=== PATIENT | female | born 1970 | race Caucasian/White ===

== ENCOUNTER → 2016-04-26 | Outpatient (CLI) | payer OTHER | LOC: FIMAGING 09:12 | PROVIDERS: ATTEND Physician Assistant | DX: Z12.39 Encounter for other screening for malignant neoplasm of breast (principal); R92.2 Inconclusive mammogram ==

== ENCOUNTER 2018-06-26 10:37 | Day surgery (SDC) | payer OTHER ==
[2018-06-26] MEDS ORDERED: LIDOCAINE 1% 300 MG/30 ML SDV ONE (10:44)
[2018-06-26] MEDS ORDERED: ROPIVACAINE HCL 150 MG/30 ML INJ ONE (10:44)
[2018-06-26] MEDS ORDERED: BUPIVACAINE 0.5% 30 ML SDV ONE (10:44)
[2018-06-26] MEDS ORDERED: BACITRACIN 50,000 UNITS/10 ML SYR IRR ONE (10:45)
[2018-06-26] MEDS ORDERED: LIDOCAINE 1% 2 ML INJ ID PRN (10:57)
[2018-06-26] MEDS ORDERED: LR 1,000 ML IV ONE (10:57)
[2018-06-26] MEDS ORDERED: ceFAZolin 2 GM/DEXTROSE 100 ML IV ONE (11:20)
[2018-06-26] MEDS ORDERED: MIDAZOLAM 2 MG/2 ML VIAL IVP ONE (12:02)
[2018-06-26] MEDS ORDERED: PROPOFOL/EMULSION 500 MG/50 ML BOTTLE IV ONE (12:04)
[2018-06-26] MEDS ORDERED: MIDAZOLAM 2 MG/2 ML VIAL ONE (12:06)
[2018-06-26] MEDS ORDERED: ACETAMINOPHEN 500 MG TAB PO PRN ×2 (13:14→14:42)
[2018-06-26] MEDS ORDERED: oxyCODONE IR 5 MG TAB PO PRN ×2 (13:14→14:42)
[2018-06-26] MEDS ORDERED: fentaNYL 100 MCG/2 ML INJ IVP PRN ×2 (13:14→14:42)
[2018-06-26] MEDS ORDERED: PROMETHAZINE HCL 25 MG/ML INJ IVP PRN (13:14)
[2018-06-26] MEDS ORDERED: ONDANSETRON 4 MG/2 ML VIAL IVP PRN ×2 (13:14→14:42)
[2018-06-26] MEDS ORDERED: METOCLOPRAMIDE 10 MG/2 ML VIAL IVP PRN (13:14)
[2018-06-26] MEDS ORDERED: HYDROCODONE/APAP 5/325 TAB PO PRN ×2 (13:14→14:42)
[2018-06-26] MEDS ORDERED: LR 500 ML IV PRN (13:14)
[2018-06-26] MEDS ORDERED: HYDROmorphONE/DILAUDID 1 MG/ML INJ IVP PRN ×2 (13:14→14:42)
[2018-06-26] MEDS ORDERED: ALBUTEROL 3 ML DEYVIAL IH PRN (13:14)
[2018-06-26] MEDS ORDERED: NALOXONE HCL 0.4 MG/ML INJ IVP PRN ×2 (13:14→14:42)
[2018-06-26] MEDS ORDERED: PROPOFOL 200 MG/20 ML VIAL ONE (13:34)
== END 2018-06-26 15:10 | disposition home or self-care (01) ==
DX: M20.22 Hallux rigidus, left foot (principal); M79.672 Pain in left foot; M89.8X7 Other specified disorders of bone, ankle and foot